=== PATIENT | male | born 1995 | race Caucasian/White ===

== ENCOUNTER 2020-01-04 12:28 | Emergency (ER) | payer OTHER ==
[2020-01-04] MEDS ORDERED: Diphtheria,Pertussis(Acell),Tetanus Vaccine 0.5 ML SDV IM ONE (13:18)
--- NOTE | 2020-01-04 13:22 | EDM.PDOC ---
ED HPI GENERAL MEDICAL PROBLEM - General Chief Complaint: Laceration Stated Complaint: R HAND FISH HOOK - REMOVED ON OWN - TETANUS? Time Seen by Provider: 01/04/20 13:16 Source of Information: Reports: Patient, RN Notes Reviewed History Limitations: Reports: No Limitations - History of Present Illness INITIAL COMMENTS - FREE TEXT/NARRATIVE: 24-year-old gentleman presents the emergency department today with a fishhook injury to his right hand this yesterday removed it himself he is here for tetanus no functional complaints - Related Data Allergies Allergy/AdvReac Type Severity Reaction Status Date / Time pollen extracts Allergy Mild Other Verified 01/04/20 13:01 bazan Allergy Other Verified 01/04/20 13:01 Home Meds: Home Meds Ibuprofen [Motrin] 600 mg PO Q6H PRN 01/04/20 [History] Past Medical History - Past Surgical History Other HEENT Surgeries/Procedures: ear tubes in past GI Surgical History: Reports: Hernia, Inguinal Social & Family History - Tobacco Use Smoking Status *Q: Never Smoker - Caffeine Use Caffeine Use: Reports: Coffee - Alcohol Use Days Per Week of Alcohol Use: 2 Number of Drinks Per Day: 2 Total Drinks Per Week: 4 Date of Last Drink: 01/03/20 - Recreational Drug Use Recreational Drug Use: Yes Drug Use in Last 12 Months: Yes Recreational Drug Type: Reports: Marijuana/Hashish Recreational Drug Use Frequency: Weekly ED ROS GENERAL - Review of Systems Review Of Systems: See Below Skin: Reports: Wound ED EXAM, SKIN/RASH Exam: See Below Text/Narrative:: Examination the right hand healed puncture wound is appreciated over the palmar surface right hand no functional complaints radial pulses +2 Course - Vital Signs Last Recorded V/S: Last Vital Signs Temp 95.9 F L 01/04/20 13:13 Pulse 57 L 01/04/20 13:13 Resp 12 01/04/20 13:13 BP 137/73 01/04/20 13:13 Pulse Ox 97 01/04/20 13:13 - Orders/Labs/Meds Orders: Active Orders 24 hr Category Date Time Status Vaccines to be Administered [RC] PER UNIT ROUTINE Care 01/04/20 13:18 Ordered Meds: Medications Discontinued Medications Generic Name Dose Route Start Last Admin Trade Name Freq PRN Reason Stop Dose Admin Diphtheria/Tetanus/Acell Pertussis 0.5 ml 01/04/20 13:18 Adacel IM 01/04/20 13:19 .ONCE ONE Departure - Departure Time of Disposition: 13:21 Disposition: Home, Self-Care 01 Condition: Good Clinical Impression: Fish hook injury of hand Qualifiers: Encounter type: initial encounter Laterality: right Qualified Code(s): S69.91XA - Unspecified injury of right wrist, hand and finger(s), initial encounter - Discharge Information Instructions: Laceration Care, Adult, [id number] Referrals: PCP,None [Primary Care Provider] - Additional Instructions: Follow-up with primary care as needed Sepsis Event Note (ED) - Evaluation Sepsis Screening Result: No Definite Risk - Focused Exam Vital Signs: Vital Signs Temp Pulse Resp BP Pulse Ox 01/04/20 13:13 95.9 F L 57 L 12 137/73 97 01/04/20 12:39 95.9 F L 57 L 12 137/73 97 - My Orders Last 24 Hours: My Active Orders 01/04/20 13:18 Vaccines to be Administered [RC] PER UNIT ROUTINE - Assessment/Plan Last 24 Hours: My Active Orders 01/04/20 13:18 Vaccines to be Administered [RC] PER UNIT ROUTINE Plan: Assessment Acuity = acute Site and laterality = puncture wound Etiology = fishhook Manifestations = none Location of injury = Home Lab values = none Plan Tetanus was updated today follow-up with primary care as needed This note was dictated using [employer] voice recognition software please call with any questions on syntax or grammar.
== END 2020-01-04 13:42 | disposition home or self-care (01) ==
LOC: JP.ED 12:28
DX: S61.441A Puncture wound with foreign body of right hand, initial encounter (principal); Z91.09 Other allergy status, other than to drugs and biological substances; Z91.018 Allergy to other foods; Z23 Encounter for immunization; W45.8XXA Other foreign body or object entering through skin, initial encounter
CPT/HCPCS: 90471; 90715; 99282